=== PATIENT | female | born 1995 | race Two or more races ===

== ENCOUNTER 2025-06-05 12:05 | Inpatient (IN) | payer MEDICAID, OTHER ==
[~2025-06-05] VITALS: Ht 175.3 cm; Wt 57.2 kg
[2025-06-05] VITALS (7 sets, daily range): BP systolic 93–104; BP diastolic 46–67; PULSE 62–74; RESP 12–18; TEMP 97.3–98.6; O2SAT 98–100
--- NOTE | 2025-06-05 12:31 | ED.PDOC ---
History of Present Illness HPI Comments A 29 year-old female, with a PMHX of Anemia and Colitis, presents to the ED with a chief complaint of low blood levels with associated fatigue as of X1 week ago. Patient had blood drawn X1 week ago and was told today by PCP that blood levels are low at 6.2. Patient reports additional lower abdominal pain with associated blood in stools for about X1 year due to Colitis. Patient states abdominal pain is a 3/10, constant, with no associated alleviating factors. Patient has no further complaints at this time and otherwise denies further associated symptoms of N/V, migraine, dizziness, dysuria, hematuria, or fever. Chief Complaint: Abnormal LAB's Time Seen by MD: 12:21 Reviewed Notes: Nurses Notes, Medications, Allergies Allergies: Coded Allergies: NO KNOWN ALLERGIES (Unverified , 06/05/25) Information Source: Patient Mode of Arrival: Ambulatory Severity: Moderate Duration: Since onset Associated signs and symptoms Blood in stool, lower abdominal pain, fatigue Past Medical History Past Medical History (Other): Anemia and Colitis Surgical History: Denies all surgeries HEALTH SAFETY SPECIALIST History: No Pertinent HEALTH SAFETY SPECIALIST History Family History Family History: Reviewed,noncontributory to illness, No family hx of Cancer, No family hx of DM, No family hx of Heart azul, No family hx of HTN, No family hx ofKidney azul, No family hx of Liver azul, No family hx of Lung azul, No family hx of Stroke Social History Smoker: Non-Smoker Alcohol: Denies ETOH Use Drugs: Marijuana Lives In: Home Constitutional: reports: fatigue; denies: chills, diaphoresis, fever, malaise, sweats, weakness, others EENTM: denies: blurred vision, double vision, ear bleeding, ear discharge, ear drainage, ear pain, ear ringing, eye pain, eye redness, hearing loss, mouth pain, mouth swelling, nasal discharge, nose bleeding, nose congestion, nose pain, photophobia, tearing, throat pain, throat swelling, voice changes, others Respiratory: denies: cough, hemoptysis, orthopnea, SOB at rest, shortness of breath, SOB with excertion, stridor, wheezing, others Cardiovascular: denies: chest pain, dizzy spells, diaphoresis, Dyspnea on exertion, edema, irregular heart beat, left arm pain, lightheadedness, palpitations, PND, syncope, others Gastrointestinal: reports: abdominal pain, others (blood in stool ); denies: ab domen distended, blood streaked bowels, constipated, diarrhea, dysphagia, difficulty swallowing, hematemesis, melena, nausea, poor appetite, poor fluid intake, rectal bleeding, rectal pain, vomiting Genitourinary: denies: abnormal vagina bleeding, burning, dyspareunia, dysuria, flank pain, frequency, hematuria, incontinence, pain, , vagina discharge, urgency, others Neurological: denies: dizziness, fainting, headache, left sided numbness, left sided weakness, numbness, paresthesia, pre-existing deficit, right sided numbness, right sided weakness, seizure, speech problems, tingling, tremors, weakness, others Musculoskeletal: denies: back pain, gout, joint pain, joint swelling, muscle pa in, muscle stiffness, neck pain, others Integumetry: denies: bruises, change in color, change in hair/nails, dryness, laceration, lesions, lumps, rash, wounds, others Allergic/Immunocompromised: denies: Difficulty Healing, Frequent Infections, Hives, Itching, others Hematologic/Lymphatic: denies: anemia, blood clots, easy bleeding, easy bruising, swollen glands, others Endocrine: denies: excessive hunger, excessive sweating, excessive thirst, excessive urination, flushing, intolerance to cold, intolerance to heat, unexplained weight gain, unexplained weight loss, others Psychiatric: denies: anxiety, bipolar disorder, depression, hopeless, panic disorder, schizophrenia, sleepless, suicidal, others All Other Systems: Reviewed and Negative Physical Exam General Appearance: Moderate Distress, Thin HEENT: Pale Conjuntivae (L), Pale Conjuntivae (R), Pharynx Normal, TMs Normal Neck: Full Range of Motion, Non-Tender, Normal, Normal Inspection Respiratory: Chest Non-Tender, Lungs Clear, No Accessory Muscle Use, No Respiratory Distress, Normal Breath Sounds Cardiovascular: No Edema, No JVD, No Murmur, No Gallop, Normal Peripheral Pulses, Regular Rate/Rhythm Breast Exam: Deferred Gastrointestinal: LLQ, No Organomegaly, No Pulsatile Mass, Normal Bowel Sounds, RLQ, Soft, Tenderness Genitalia: Deferred Pelvic: Deferred Rectal: Deferred Extremities: No calf tenderness, Normal capillary refill, No pedal edema Musculoskeletal : Apperance: Normal Neurologic: Alert, crew manager II-XII nml as Tested, Motor Weakness, Normal Affect, Normal Mood, No Sensory Deficits Cerebellar Function: Normal Reflexes: Normal Skin: Dry, Pallor, Warm Lymphatic: No Adenopathy Was a procedure done? Was a procedure done?: No Differential Dx Considerations may include: Anemia, intractable abdominal pain, generalized weakness, GI bleed X-Ray, Labs, Meds, VS Vital Signs Date Time Temp Pulse Resp B/P (MAP) Pulse Ox O2 Delivery O2 Flow Rate FiO2 06/05/25 13:32 66 18 98 Room Air 06/05/25 13:32 16 91/51 (64) 98 06/05/25 12:05 99.0 66 16 100/64 99 99.0 Lab Test 06/05/25 12:31 06/05/25 12:23 Range/Units White Blood Count 5.8 4.4-10.8 10^3/uL Red Blood Count 3.31 L 4.0-5.20 10^6/uL Hemoglobin 7.0 *L 12.2-16.2 g/dL Hematocrit 22.9 L 36.0-46.0 % Mean Corpuscular Volume 69.3 L 80.0-100.0 fL Mean Corpuscular Hemoglobin 21.1 L 28.0-32.0 pg Mean Corpuscular Hemoglobin Concent 30.5 L 32.0-36.0 g/dL Red Cell Distribution Width 16.6 H 11.8-14.3 % Platelet Count 536 H 140-450 10^3/uL Mean Platelet Volume 7.5 6.9-10.8 fL Neutrophils (%) (Auto) 42.7 37.0-80.0 % Lymphocytes (%) (Auto) 41.6 10.0-50.0 % Monocytes (%) (Auto) 6.4 0.0-12.0 % Eosinophils (%) (Auto) 7.7 H 0.0-7.0 % Basophils (%) (Auto) 1.6 0.0-2.0 % Neutrophils # (Auto) 2.5 1.6-8.6 10 ^3/uL Lymphocytes # (Auto) 2.4 0.4-5.4 10 ^3/uL Monocytes # (Auto) 0.4 0-1.3 10 ^3/uL Eosinophils # (Auto) 0.4 0-0.8 10 ^3/uL Basophils # (Auto) 0.1 0-0.2 10 ^3/uL Nucleated Red Blood Cells 0.0 % Prothrombin Time 10.7 9.3-11.8 sec Prothrombin Time INR 1.01 0.9-1.15 Activated Partial Thromboplast Time 25.9 24.5-34.5 SEC Sodium Level 138 136-145 mmol/L Potassium Level 3.6 3.5-5.1 mmol/L Chloride Level 105 98-107 mmol/L Carbon Dioxide Level 28 20-31 mmol/L Anion Gap 5 5-15 Blood Urea Nitrogen 9 9-23 mg/dL Creatinine 0.62 0.550-1.02 mg/dL Glomerular Filtration Rate Calc 124 >90 mL/min BUN/Creatinine Ratio 14.5 10.0-20.0 Serum Glucose 84 74-106 mg/dL Calcium Level 9.2 8.7-10.4 mg/dL Urine Color Light-yellow Yellow Urine Clarity Turbid H Clear Urine pH 6.0 5.0-9.0 Urine Specific [place] 1.021 1.001-1.035 Urine Protein Negative Negative Urine Ketones Negative Negative Urine Blood Negative Negative /uL Urine Nitrite Negative Negative Urine Bilirubin Negative Negative Urine Urobilinogen Normal Negative mg/dL Urine Leukocyte Esterase 3+ Negative /uL Urine RBC 4 0 - 4 /hpf Urine Microscopic WBC 14 H 0-5 /HPF Urine Squamous Epithelial Cells Mod <5 /hpf Urine Bacteria None seen None Seen /hpf Urine Mucus Few None Seen Urine Glucose Normal Normal mg/dL Current Medications Medications (Trade) Dose Ordered Sig/Cam Route Start Time Stop Time Status Last Admin Pantoprazole Sodium (Protonix) 40 mg ONCE ONCE IV 06/05/25 12:30 06/05/25 12:31 DC 06/05/25 13:32 IV Hep-Lock was established The patient was given Protonix 40 mg IV push The patient's CBC shows anemia with a hemoglobin of 7.0 and hematocrit 22.9 The patient was given Rocephin 1 g IV piggyback for urine that shows a UTI The CAT scan of the abdomen and pelvis shows: IMPRESSION: 1. Multiple soft tissue nodules in the mesenteric fat are suspicious for metastatic disease. Alternatively, this appearance could arise from prior splenic trauma, although the spleen appears normal morphologically on the current study. Recommend surgical consultation for appropriate management, biopsy, or follow-up imaging. 2. Trace free fluid in the pelvis, likely physiologic. 3. No evidence of bowel obstruction, acute appendicitis, or other acute process in the abdomen or pelvis. The patient is being admitted at this time The patient is being typed and screened and transfused with 1 unit of packed red blood cells. The patient is being admitted Images Reviewed?: Images reviewed and evaluated by me Time of 1ST Reevaluation: 12:54 Reevaluation 1ST: Unchanged Patient Education/Counseling: Diagnosis, Treatment, Prognosis Family Education/Counseling: No Family Present SEPSIS Sepsis Screen Physician Orders Heplock Iv (06/05/25 12:23) Electrocardigram (06/05/25 12:23) Type And Screen (06/05/25 12:23) Obtain Consent For: (06/05/25 13:25) Administer Blood Products UD (06/05/25 13:25) Ct Ab Pel Wo Con-No Oral Or Iv (06/05/25 13:25) Ceftriaxone 1gm/50ml D5w (Rocephin) (06/05/25 14:30) Vital Signs Date Time Temp Pulse Resp B/P (MAP) Pulse Ox O2 Delivery O2 Flow Rate FiO2 06/05/25 13:32 66 18 98 Room Air 06/05/25 13:32 16 91/51 (64) 98 06/05/25 12:05 99.0 66 16 100/64 99 99.0 Laboratory Tests Test 06/05/25 12:31 White Blood Count 5.8 10^3/uL (4.4-10.8) Medications Medications Dose Ordered Sig/Cam Route Start Time Stop Time Status Last Admin Dose Admin Pantoprazole Sodium 40 mg ONCE ONCE IV 06/05/25 12:30 06/05/25 12:31 DC 06/05/25 13:32 Departure 1 Departure Time of Disposition: 14:27 Impression: Primary Impression: Lower GI bleed Additional Impression: Severe anemia Disposition: 09 ADMITTED INPATIENT Admit to: Med Surg Condition: Fair Critical Care Note Critical Care Time?: No Stability Stability form required: Yes Unstable for transfer: ED Physician Assesment (Clinical assesment) Heart Score Heart Score: Heart Score Response (Comments) Value History N/A 0 EKG N/A 0 Age N/A 0 Risk Factors N/A 0 Troponin N/A 0 Total 0 I personally scribed for JESSIKA GARCIA MD ([email or web address]) on 06/05/25 at 12:31. Electronically submitted by Ivory Lanier ([email or web address]). I personally scribed for JESSIKA GARCIA MD ([email or web address]) on 06/05/25 at 12:32. Electronically submitted by Ivory Lanier ([email or web address]). I personally scribed for JESSIKA GARCIA MD ([email or web address]) on 06/05/25 at 14:35. Electronically submitted by Ivory Lanier ([email or web address]). JESSIKA GARCIA MD Jun 05, 2025 12:31
[2025-06-05 12:59] LABS: Urine Protein, UAD Negative (Negative)
[2025-06-05 13:03] LABS: Hematocrit 22.9 % (36.0-46.0); Mean Corpuscular Hemoglobin 21.1 pg (28.0-32.0); Mean Corpuscular Volume 69.3 fL (80.0-100.0); Nucleated Red Blood Cells % 0.0 %
[2025-06-05 13:05] LABS: Chloride 105 mmol/L (98-107); Potassium 3.6 mmol/L (3.5-5.1); Sodium 138 mmol/L (136-145)
[2025-06-05 13:06] LABS: Anion Gap 5 (5-15); Calcium 9.2 mg/dL (8.7-10.4); Carbon Dioxide 28 mmol/L (20-31)
[2025-06-05 13:11] LABS: BUN/Creatinine Ratio 14.5 (10.0-20.0); Blood Urea Nitrogen 9 mg/dL (9-23); Glucose 84 mg/dL (74-106); Hemoglobin 7.0 g/dL (12.2-16.2)
[2025-06-05 13:21] LABS: INR 1.01 (0.9-1.15); Partial Thromboplastin Time 25.9 SEC (24.5-34.5); Prothrombin Time 10.7 sec (9.3-11.8)
[2025-06-05] MEDS: PANTOPRAZOLE 40 MG/10 ML VIAL INJ IV ONE (13:32)
--- NOTE | 2025-06-05 14:19 | DVH ---
EXAM: CT CT AB PEL WO CON-NO ORAL OR IV HISTORY: pain COMPARISON: None TECHNIQUE: Helical CT images of the abdomen and pelvis were performed without IV contrast. Sagittal a nd coronal reformatted images were obtained. This CT exam was performed using one or more of the foll owing dose reduction techniques: Automated exposure control, adjustment of the mA and/or kv according to patient size, or the use of iterative reconstruction techniques. Radiation Dose: Abdomen/Pelvis: CTDIvol 5.07 mGy, DLP 244.27 mGy*cm. FINDINGS: CT abdomen: The lung bases are clear. The heart is not enlarged. The left lobe of the liver is elonga angela and extends to the left abdominal wall draping over the spleen. The noncontrast spleen, gallbladd er, pancreas, kidneys, and adrenal glands are unremarkable. No abdominal aortic aneurysm. There is a small fatty umbilical hernia. CT pelvis: No abnormal bowel dilatation or free air. There is trace free fluid in the pelvis. There a re multiple soft tissue nodules in the mesenteric fat, greater on the left. The appendix is not dilat ed. The urinary bladder is not distended. IMPRESSION: 1. Multiple soft tissue nodules in the mesenteric fat are suspicious for metastatic disease. Alternat ively, this appearance could arise from prior splenic trauma, although the spleen appears normal morp hologically on the current study. Recommend surgical consultation for appropriate management, biopsy, or follow-up imaging. 2. Trace free fluid in the pelvis, likely physiologic. 3. No evidence of bowel obstruction, acute appendicitis, or other acute process in the abdomen or pel vis.
[2025-06-05] MEDS: cefTRIAXone 1GM/50ML D5W 50 ML IV ONE (14:46)
[2025-06-05] MEDS: SODIUM CHLORIDE 0.9% 1,000 ML IV ONE (15:04)
--- NOTE | 2025-06-05 16:22 | DVHINCON2 ---
GI Consult Consult Note Date of Consultation: 06/05/2025 Chief Complaint: anemia and blood in stool Referring Physician:Dr Hernandez H&P: 29 y.o. woman with h/o UC who was found to have anemia on outpatient lab and was send to the ED for blood transfusion. She still has active UC despite being on Tremfoya. Past Medical History: hypothyroidism, UC Past Surgical History: none Social History: NO smoking, drinking ETOH and use of illegal drugs. Family History: no family h/o GI illness Review of Systems: Constitutional: no fever, chill, weight loss HEENT: no eye pain, no hearing loss, no oral lesion, no scleral icterus Heart: no chest pain, no chest pressure Lung: no cough, no dyspnea with exertion Abdomen: see HPI : no pain with urination, normal appearing urine Musculoskeletal: no joint pain, no muscle pain Neurological: no seizure, no loss of sensation, no weakness in extremities Pysch: no depression, no anxiety Derm: no rash, no jaundice Physical exam: General: NAD, AAOX3 HEENT: PERRL, no scleral icterus, normal hearing, gums without lesions or bleeding, oropharynx clear without erythema or exudate. Neck: Supple without enlargement of the thyroid, or lymphadenopathy. Chest: Normal size and shape, no tenderness, lung perales clear to auscultation and percussion, nonlabored breathing. Heart: RRR, no murmur Abdomen: non-distended, no tenderness to palpation, +BS, no hepatosplenomegaly Extremities: no edema, no cyanosis Neurological: CN II-XII intact, sensation intact in all extremities, 5+ strength in all extremities, no asterixis Skin: No rashes, No jaundice Labs: Laboratory Results Test 06/05/25 12:31 06/05/25 12:23 White Blood Count 5.8 10^3/uL (4.4-10.8) Red Blood Count 3.31 10^6/uL (4.0-5.20) Hemoglobin 7.0 g/dL (12.2-16.2) Hematocrit 22.9 % (36.0-46.0) Mean Corpuscular Volume 69.3 fL (80.0-100.0) Mean Corpuscular Hemoglobin 21.1 pg (28.0-32.0) Mean Corpuscular Hemoglobin Concent 30.5 g/dL (32.0-36.0) Red Cell Distribution Width 16.6 % (11.8-14.3) Platelet Count 536 10^3/uL (140-450) Mean Platelet Volume 7.5 fL (6.9-10.8) Neutrophils (%) (Auto) 42.7 % (37.0-80.0) Lymphocytes (%) (Auto) 41.6 % (10.0-50.0) Monocytes (%) (Auto) 6.4 % (0.0-12.0) Eosinophils (%) (Auto) 7.7 % (0.0-7.0) Basophils (%) (Auto) 1.6 % (0.0-2.0) Neutrophils # (Auto) 2.5 10 ^3/uL (1.6-8.6) Lymphocytes # (Auto) 2.4 10 ^3/uL (0.4-5.4) Monocytes # (Auto) 0.4 10 ^3/uL (0-1.3) Eosinophils # (Auto) 0.4 10 ^3/uL (0-0.8) Basophils # (Auto) 0.1 10 ^3/uL (0-0.2) Nucleated Red Blood Cells 0.0 % Prothrombin Time 10.7 sec (9.3-11.8) Prothrombin Time INR 1.01 (0.9-1.15) Activated Partial Thromboplast Time 25.9 SEC (24.5-34.5) Sodium Level 138 mmol/L (136-145) Potassium Level 3.6 mmol/L (3.5-5.1) Chloride Level 105 mmol/L (98-107) Carbon Dioxide Level 28 mmol/L (20-31) Anion Gap 5 (5-15) Blood Urea Nitrogen 9 mg/dL (9-23) Creatinine 0.62 mg/dL (0.550-1.02) Glomerular Filtration Rate Calc 124 mL/min (>90) BUN/Creatinine Ratio 14.5 (10.0-20.0) Serum Glucose 84 mg/dL (74-106) Calcium Level 9.2 mg/dL (8.7-10.4) Urine Color Light-yellow (Yellow) Urine Clarity Turbid (Clear) Urine pH 6.0 (5.0-9.0) Urine Specific [place] 1.021 (1.001-1.035) Urine Protein Negative (Negative) Urine Ketones Negative (Negative) Urine Blood Negative /uL (Negative) Urine Nitrite Negative (Negative) Urine Bilirubin Negative (Negative) Urine Urobilinogen Normal mg/dL (Negative) Urine Leukocyte Esterase 3+ /uL (Negative) Urine RBC 4 /hpf (0 - 4) Urine Microscopic WBC 14 /HPF (0-5) Urine Squamous Epithelial Cells Mod /hpf (<5) Urine Bacteria None seen /hpf (None Seen) Urine Mucus Few (None Seen) Urine Glucose Normal mg/dL (Normal) Other Laboratory Tests 06/05/25 12:31 Imaging: CT A/P: 1. Multiple soft tissue nodules in the mesenteric fat are suspicious for metastatic disease. Alternatively, this appearance could arise from prior splenic trauma, although the spleen appears normal morphologically on the current study. Recommend surgical consultation for appropriate management, biopsy, or follow-up imaging. 2. Trace free fluid in the pelvis, likely physiologic. 3. No evidence of bowel obstruction, acute appendicitis, or other acute process in the abdomen or pelvis. Assessment: 29 y.o. woman with active UC who has anemia. She was also found to have nodules in the mesenteric fat. Plan: - Pt will get blood transfusion - Recommend placing pt on hydrocortisone IV 100 mg tid. - Will check C diff since she had recent antibiotics use. Date of Service: Jun 05, 2025 Billing Provider: ARELIS LORENZ MD Common Visit Codes: [id number] INP/OBS CARE (MOD) ARELIS LORENZ MD Jun 05, 2025 16:22
--- NOTE | 2025-06-05 18:29 | DVHHP2 ---
Admitting Diagnosis: Anemia History of Present Illness A 29 year-old female, with a PMHX of Anemia and Colitis, presents to the ED with a chief complaint of low blood levels with associated fatigue as of X1 week ago. Patient had blood drawn X1 week ago and was told today by PCP that blood levels are low at 6.2. Patient reports additional lower abdominal pain with associated blood in stools for about X1 year due to Colitis. Patient states abdominal pain is a 3/10, constant, with no associated alleviating factors. Patient has no further complaints at this time and otherwise denies further associated symptoms of N/V, migraine, dizziness, dysuria, hematuria, or fever. Past Medical History (Other): Anemia and Colitis Surgical History: Denies all surgeries PIT OPERATOR History: No Pertinent PIT OPERATOR History Family History Family History: Reviewed,noncontributory to illness, No family hx of Cancer, No family hx of DM, No family hx of Heart azul, No family hx of HTN, No family hx of Kidney azul, No family hx of Liver azul, No family hx of Lung azul, No family hx of Stroke Social History Smoker: Non-Smoker Alcohol: Denies ETOH Use Drugs: Marijuana Lives In: Home Allergies: Coded Allergies: NO KNOWN ALLERGIES (Unverified , 06/05/25) Current Medications Current Medications Medications (Trade) Dose Ordered Sig/Cam Route PRN Reason Start Time Stop Time Status Last Admin Hydrocortisone Sodium Succinate (Solu-CORTEF INJECTION) 100 mg Q8HR IV 06/05/25 22:00 Vital Signs Vital Signs Date Time Temp Pulse Resp B/P (MAP) Pulse Ox O2 Delivery O2 Flow Rate FiO2 06/05/25 17:25 98.6 68 12 99/55 (70) 99 98.6 06/05/25 15:00 Room Air* 0 21 Physical Exam Generally-71 years old woman, well nourished well developed. No apparent distress HEENT-atraumatic, normocephalic Heart-regular rate and rhythm Lungs clear to auscultate Abdomen soft, nontender nondistended Musculoskeletal-no edema cyanosis Neuro-AO x3, no focal deficits SEPSIS Sepsis Screen Date sepsis recognized/suspect: Jun 05, 2025 Time Sepsis recognized/suspect: 1500 Recent Procedure: No On Antibiotic Therapy: No Respiratory Rate >20: No Heart Rate >90: No Temp<36 C (96.8 F) or >38.3 C: No SBP <90 or MAP <65 mmHG: No New Acute Mental Status Change: No Is the patient on CPAP, BIPAP,: No Physician Orders Heplock Iv (06/05/25 12:23) Electrocardigram (06/05/25 12:23) Obtain Consent For: (06/05/25 13:25) Administer Blood Products UD (06/05/25 13:25) Ct Ab Pel Wo Con-No Oral Or Iv (06/05/25 13:25) Clostridium Difficile Toxin (06/05/25 16:22) Hydrocortisone Succinate Inj (Solu-Marielena (06/05/25 22:00) Urine Creatinine (06/05/25 18:16) Complete Blood Count (06/06/25 05:00) Complete Blood Count (06/07/25 05:00) Complete Blood Count (06/08/25 05:00) Complete Blood Count (06/09/25 05:00) Complete Blood Count (06/10/25 05:00) Comprehensive Metabolic Panel (06/06/25 05:00) Comprehensive Metabolic Panel (06/07/25 05:00) Comprehensive Metabolic Panel (06/08/25 05:00) Comprehensive Metabolic Panel (06/09/25 05:00) Comprehensive Metabolic Panel (06/10/25 05:00) Hydrocortisone Succinate Inj (Solu-Marielena (06/05/25 22:00) Admit (06/05/25 18:19) Code Status (06/05/25 18:19) Vital Signs .PER UNIT PROTOCOL (06/05/25 18:19) Review Orders With Adm.Md (06/05/25 18:19) Encourage Activity As Tolerate (06/05/25 18:19) Regular Diet (06/05/25 Dinner) Sodium Chloride Lock (Saline Lock Ns) (06/05/25 22:00) Acetaminophen Tablet (Tylenol Tablet) (06/05/25 18:30) Notify Md Of Changes From Base (06/05/25 18:19) Advance Directive (06/05/25 18:19) Patient Condition (06/05/25 18:19) Allergies (06/05/25 18:19) Hydrocodone-Acet 5/325mg Tab ([place] 5/32 (06/05/25 18:30) Hydromorphone Injection (Dilaudid Inject (06/05/25 18:30) Ondansetron Hcl (Zofran) (06/05/25 18:30) Ferrous Sulfate Tablet (06/06/25 10:00) Urine Bacterial Culture (06/05/25 18:26) Ceftriaxone Ivpb Rocephin (06/06/25 09:00) Vital Signs Date Time Temp Pulse Resp B/P (MAP) Pulse Ox O2 Delivery O2 Flow Rate FiO2 06/05/25 17:25 98.6 68 12 99/55 (70) 99 98.6 06/05/25 17:23 98.6 68 12 99/55 98.6 06/05/25 16:35 98.5 72 13 93/46 98.5 06/05/25 16:20 98.6 74 12 97/54 (68) 99 98.6 06/05/25 16:12 98.6 74 12 97/54 98.6 06/05/25 16:12 98.6 74 12 97/54 98.6 06/05/25 15:00 98.0 71 16 90/57 (68) 98 98.0 06/05/25 15:00 71 16 98 Room Air* 0 21 06/05/25 13:32 66 18 98 Room Air 06/05/25 13:32 16 91/51 (64) 98 06/05/25 12:05 99.0 66 16 100/64 99 99.0 Laboratory Tests Test 06/05/25 12:31 White Blood Count 5.8 10^3/uL (4.4-10.8) Medications Medications Dose Ordered Sig/Cam Route Start Time Stop Time Status Last Admin Dose Admin Ceftriaxone Sodium 50 ml @ 100 mls/hr ONCE ONCE IV 06/05/25 14:30 06/05/25 14:59 DC 06/05/25 14:46 Pantoprazole Sodium 40 mg ONCE ONCE IV 06/05/25 12:30 06/05/25 12:31 DC 06/05/25 13:32 Sodium Chloride 1,000 ml @ 1,000 mls/hr Q1H ONCE IV 06/05/25 15:00 06/05/25 15:59 DC 06/05/25 15:04 Results Labs Test 06/05/25 12:31 06/05/25 12:23 Range/Units White Blood Count 5.8 4.4-10.8 10^3/uL Red Blood Count 3.31 L 4.0-5.20 10^6/uL Hemoglobin 7.0 *L 12.2-16.2 g/dL Hematocrit 22.9 L 36.0-46.0 % Mean Corpuscular Volume 69.3 L 80.0-100.0 fL Mean Corpuscular Hemoglobin 21.1 L 28.0-32.0 pg Mean Corpuscular Hemoglobin Concent 30.5 L 32.0-36.0 g/dL Red Cell Distribution Width 16.6 H 11.8-14.3 % Platelet Count 536 H 140-450 10^3/uL Mean Platelet Volume 7.5 6.9-10.8 fL Neutrophils (%) (Auto) 42.7 37.0-80.0 % Lymphocytes (%) (Auto) 41.6 10.0-50.0 % Monocytes (%) (Auto) 6.4 0.0-12.0 % Eosinophils (%) (Auto) 7.7 H 0.0-7.0 % Basophils (%) (Auto) 1.6 0.0-2.0 % Neutrophils # (Auto) 2.5 1.6-8.6 10 ^3/uL Lymphocytes # (Auto) 2.4 0.4-5.4 10 ^3/uL Monocytes # (Auto) 0.4 0-1.3 10 ^3/uL Eosinophils # (Auto) 0.4 0-0.8 10 ^3/uL Basophils # (Auto) 0.1 0-0.2 10 ^3/uL Nucleated Red Blood Cells 0.0 % Prothrombin Time 10.7 9.3-11.8 sec Prothrombin Time INR 1.01 0.9-1.15 Activated Partial Thromboplast Time 25.9 24.5-34.5 SEC Sodium Level 138 136-145 mmol/L Potassium Level 3.6 3.5-5.1 mmol/L Chloride Level 105 98-107 mmol/L Carbon Dioxide Level 28 20-31 mmol/L Anion Gap 5 5-15 Blood Urea Nitrogen 9 9-23 mg/dL Creatinine 0.62 0.550-1.02 mg/dL Glomerular Filtration Rate Calc 124 >90 mL/min BUN/Creatinine Ratio 14.5 10.0-20.0 Serum Glucose 84 74-106 mg/dL Calcium Level 9.2 8.7-10.4 mg/dL Urine Color Light-yellow Yellow Urine Clarity Turbid H Clear Urine pH 6.0 5.0-9.0 Urine Specific [place] 1.021 1.001-1.035 Urine Protein Negative Negative Urine Ketones Negative Negative Urine Blood Negative Negative /uL Urine Nitrite Negative Negative Urine Bilirubin Negative Negative Urine Urobilinogen Normal Negative mg/dL Urine Leukocyte Esterase 3+ Negative /uL Urine RBC 4 0 - 4 /hpf Urine Microscopic WBC 14 H 0-5 /HPF Urine Squamous Epithelial Cells Mod <5 /hpf Urine Bacteria None seen None Seen /hpf Urine Mucus Few None Seen Urine Glucose Normal Normal mg/dL Primary Diagnosis Severe microcytic anemia Acute auscultate colitis flare Plan Status post transplant in ED. Start iron supplement Check CBC 4 hours after blood transfusion GI appreciated. Start hydrocortisone 100 mg t.i.d. Monitor for lower GI bleed Full code PPI for GI prophylaxis Regular diet SCD for DVT prophylaxis Plan discussed with: Patient Problems List: (1) Severe anemia Status: Acute (2) Lower GI bleed Status: Acute Date of Service: Jun 05, 2025 Billing Provider: DAVID BUSCH MD Common Visit Codes: [id number] INP/OBS CARE (HIGH) DAVID BUSCH MD Jun 05, 2025 18:29
[2025-06-05] MEDS ORDERED: ONDANSETRON HCL 4 MG/2 ML VIAL IV PRN (18:30)
[2025-06-05] MEDS ORDERED: HYDROmorphone HCL 2 MG/ML VL/or syr IV PRN (18:30)
[2025-06-05] MEDS ORDERED: HYDROCORTISONE SOD SUCC 100 MG/2ML INJ VIAL IV SCH (22:00)
[2025-06-05] MEDS: SODIUM CHLOR 0.9% PF (SALINE LOCK) 10ML VIAL/SYR IV SCH (22:12)
[2025-06-05] MEDS: HYDROCORTISONE SOD SUCC 100 MG/2ML INJ VIAL IV SCH (22:12)
[2025-06-06 01:00] VITALS: BP 96/59; PULSE 60; RESP 17; TEMP 97.9; O2SAT 98
[2025-06-06 04:53] VITALS: BP 107/64; PULSE 61; RESP 17; TEMP 97.3; O2SAT 100
[2025-06-06 05:31] LABS: Hematocrit 23.9 % (36.0-46.0); Hemoglobin 7.5 g/dL (12.2-16.2); Mean Corpuscular Hemoglobin 22.7 pg (28.0-32.0); Mean Corpuscular Volume 72.3 fL (80.0-100.0); Nucleated Red Blood Cells % 0.0 %
[2025-06-06 05:43] LABS: Albumin 3.8 g/dL (3.2-4.8); Alkaline Phosphatase 59 U/L (46-116); Anion Gap 10 (5-15); BUN/Creatinine Ratio 10.9 (10.0-20.0); Bilirubin, Total 0.4 mg/dL (0.2-1.0); Carbon Dioxide 23 mmol/L (20-31); Chloride 105 mmol/L (98-107); Potassium 3.7 mmol/L (3.5-5.1); Sodium 138 mmol/L (136-145); Total Protein 6.9 g/dL (5.7-8.2)
[2025-06-06 06:01] LABS: Alanine Aminotransferase < 9 U/L (7-40); Blood Urea Nitrogen 6 mg/dL (9-23); Calcium 8.7 mg/dL (8.7-10.4); Glucose 115 mg/dL (74-106)
[2025-06-06] MEDS: cefTRIAXone 1GM/50ML D5W 50 ML IV SCH (08:41)
[2025-06-06 09:05] VITALS: BP 97/56; PULSE 83; RESP 16; TEMP 98.4; O2SAT 100
--- NOTE | 2025-06-06 11:00 | DVHPN2 ---
Subjective Continues with rectal bleeding Reviewed: Care Plan, H&P, Labs, Medications, Previous Orders, Radiology, Other (Consultation) Changes from previous H/P or p: No Changes Objective Vitals Vital Signs Date Time Temp Pulse Resp B/P (MAP) Pulse Ox O2 Delivery O2 Flow Rate FiO2 06/06/25 09:05 98.4 83 16 97/56 (70) 100 98.4 06/05/25 15:00 Room Air* 0 21 Intake/Output Intake and Output 06/06/25 07:00 Intake Total 2050 ml Output Total 0 ml Balance 2050 ml Intake Oral 0 ml IV Total 1050 ml Tube Feeding 0 ml Blood Product 1000 ml Output Urine Total 0 ml Stool Total 0 ml Emesis 0 ml Other 0 ml General Appearance: Alert, Oriented X3, Cooperative, No acute distress HEENT: Atraumatic, Other (Pale) Lungs: Clear to auscultation, Normal air movement Cardiovascular: Regular rate, Normal S1, Normal S2, No murmurs Abdomen: Normal bowel sounds, Soft, No tenderness Neuro: Normal speech, Cranial nerves 3-12 NL Psych/Mental Status: Mental status NL, Mood NL Medications Current Medications Medications Dose Ordered Sig/Cam Route Start Time Stop Time Status Last Admin Dose Admin Hydrocortisone Sodium Succinate 100 mg TID IV 06/05/25 22:00 06/06/25 05:45 100 MG Sodium Chloride 10 ml Q8HR IV 06/05/25 22:00 06/06/25 05:45 10 ML Acetaminophen 650 mg Q6HP PRN PO 06/05/25 18:30 Acetaminophen/ Hydrocodone Bitart 1 tab Q4HP PRN PO 06/05/25 18:30 Hydromorphone HCl 0.5 mg Q4HP PRN IV 06/05/25 18:30 Ondansetron HCl 4 mg Q4HP PRN IV 06/05/25 18:30 Ferrous Sulfate 325 mg DAILY PO 06/06/25 10:00 Ceftriaxone Sodium 50 ml @ 100 mls/hr DAILY@09 IV 06/06/25 09:00 06/06/25 08:41 100 MLS/HR Pantoprazole Sodium 40 mg DAILY IV 06/06/25 10:00 Laboratory Results Laboratory Tests 06/06/25 04:26 Chemistry Test 06/05/25 12:31 06/06/25 04:26 Calcium Level 9.2 mg/dL (8.7-10.4) 8.7 mg/dL (8.7-10.4) Albumin 3.8 g/dL (3.2-4.8) Total Protein 6.9 g/dL (5.7-8.2) Coagulation Test 06/05/25 12:31 Prothrombin Time 10.7 sec (9.3-11.8) Prothrombin Time INR 1.01 (0.9-1.15) Activated Partial Thromboplast Time 25.9 SEC (24.5-34.5) LFT Test 06/06/25 04:26 Alanine Aminotransferase (ALT) < 9 U/L (7-40) Alkaline Phosphatase 59 U/L (46-116) Aspartate Amino Transferase (AST) 12 U/L (13-40) L Total Bilirubin 0.4 mg/dL (0.2-1.0) Urinalysis Test 06/05/25 12:23 Urine Color Light-yellow (Yellow) Urine Clarity Turbid (Clear) H Urine pH 6.0 (5.0-9.0) Urine Specific [place] 1.021 (1.001-1.035) Urine Protein Negative (Negative) Urine Ketones Negative (Negative) Urine Blood Negative /uL (Negative) Urine Nitrite Negative (Negative) Urine Bilirubin Negative (Negative) Urine Urobilinogen Normal mg/dL (Negative) Urine Leukocyte Esterase 3+ /uL (Negative) Urine RBC 4 /hpf (0 - 4) Urine Microscopic WBC 14 /HPF (0-5) H Urine Squamous Epithelial Cells Mod /hpf (<5) Urine Bacteria None seen /hpf (None Seen) Urine Mucus Few (None Seen) Urine Creatinine 216.10 mg/dL (30.0-125.0) H Urine Glucose Normal mg/dL (Normal) Labs and/or images reviewed: Labs reviewed by me, Image(s) reviewed by me Assessment/Plan Assessment/Plan A 29 year-old female patient; with ulcerative colitis and marijuana use disorder; who presented with rectal bleeding # Rectal bleeding due to active ulcerative colitis with # Severe blood loss anemia due to rectal bleeding secondary to ulcerative colitis; status post 1 unit of packed RBC Thrombocytosis; most likely reactive in the setting of active bleeding # Abdominal soft tissue nodules; most likely reactive due to active ulcerative colitis as per GI # UTI # Marijuana use disorder # Malnutrition Reviewed lab work and imaging studies Continue oral steroids as per GI GI is following Continue IV ceftriaxone Urine culture pending Counseled on marijuana use cessation for 16 minutes Nutrition was consulted Continue monitoring Goals of care discussed for evaluation for 20 minutes; full code Late Entry. This medical document was created using an electronic medical record system with computerized dictation system. Although this document has been carefully reviewed, there might still be some phonetic and typographical errors. These areas are purely typographical due to imperfections of the software programs, and do not reflect any compromise in the patient's medical care. Plan discussed with: Patient, Other (Nurse) Date of Service: Jun 06, 2025 Billing Provider: MALINDA ROGERS MD Common Visit Codes: [id number] INP/OBS CARE(HIGH) Secondary Visit Codes: [id number] CHNG SMOKING >10MIN (Counseled on marijuana use cessation for 16 minutes), [id number] CARE PLAN 30 MINUTES (20 minutes) MALINDA ROGERS MD Jun 06, 2025 11:00
[2025-06-06] MEDS: FERROUS SULFATE 325mg EC TAB PO SCH (11:06)
[2025-06-06] MEDS: PANTOPRAZOLE 40 MG/10 ML VIAL INJ IV SCH (11:13)
[2025-06-06 13:00] VITALS: BP 97/52; PULSE 80; RESP 18; TEMP 98.2; O2SAT 100
--- NOTE | 2025-06-06 13:26 | DVHPN2 ---
Progress Note - Dictate Date Seen: Jun 06, 2025 Medical Necessity Reason Pt with a Central, PICC or Fol: No Subjective Pt having less blood in stool. Still has diarrhea. Tolerating regular diet. vital signs Vital Sign Date Time Temp Pulse Resp B/P (MAP) Pulse Ox O2 Delivery O2 Flow Rate FiO2 06/06/25 09:05 98.4 83 16 97/56 (70) 100 98.4 06/05/25 15:00 Room Air* 0 21 Total Intake and Output 06/05/25 06/05/25 06/06/25 15:00 23:00 07:00 Intake Total 2050 ml Output Total 0 ml Balance 2050 ml medications Current Medications Medications Dose Ordered Sig/Cam Route Start Time Stop Time Status Last Admin Dose Admin Hydrocortisone Sodium Succinate 100 mg TID IV 06/05/25 22:00 06/06/25 05:45 100 MG Sodium Chloride 10 ml Q8HR IV 06/05/25 22:00 06/06/25 05:45 10 ML Acetaminophen 650 mg Q6HP PRN PO 06/05/25 18:30 Acetaminophen/ Hydrocodone Bitart 1 tab Q4HP PRN PO 06/05/25 18:30 Hydromorphone HCl 0.5 mg Q4HP PRN IV 06/05/25 18:30 Ondansetron HCl 4 mg Q4HP PRN IV 06/05/25 18:30 Ferrous Sulfate 325 mg DAILY PO 06/06/25 10:00 06/06/25 11:06 325 MG Ceftriaxone Sodium 50 ml @ 100 mls/hr DAILY@09 IV 06/06/25 09:00 06/06/25 08:41 100 MLS/HR Pantoprazole Sodium 40 mg DAILY IV 06/06/25 10:00 06/06/25 11:13 40 MG objective General: NAD, AAOX3 HEENT: PERRL, no scleral icterus, normal hearing, gums without lesions or bleeding, oropharynx clear without erythema or exudate. Neck: Supple without enlargement of the thyroid, or lymphadenopathy. Chest: Normal size and shape, no tenderness, lung perales clear to auscultation and percussion, nonlabored breathing. Heart: RRR, no murmur Abdomen: non-distended, no tenderness to palpation, +BS, no hepatosplenomegaly Extremities: no edema Neruological: CN II-XII intact, sensation intact in all extremities, 5+ strength in all extremities, no atrixis Skin: No rashes, No jaundice laboratory and microbiology Laboratory Tests 06/06/25 04:26 Test 06/06/25 04:26 Range/Units Serum Glucose 115 H 74-106 mg/dL CT A/P: 1. Multiple soft tissue nodules in the mesenteric fat are suspicious for metastatic disease. Alternatively, this appearance could arise from prior splenic trauma, although the spleen appears normal morphologically on the current study. Recommend surgical consultation for appropriate management, biopsy, or follow-up imaging. 2. Trace free fluid in the pelvis, likely physiologic. 3. No evidence of bowel obstruction, acute appendicitis, or other acute process in the abdomen or pelvis. Problem List active UC disease- improving symptom. anemia due to GI bleeding from the UC The soft tissue nodules that were seem on CT scan are likely due to the active UC. Assessment/Plan - Continue to monitor Hgb level - Pt can be switched to PO prednisone 40 mg daily since her symptom is better - Pt will get Tremfya injection on outpatient basis - Will repeat CT scan when her UC goes into remission to reassess the soft tissue nodules. Plan discussed with: Patient CC Plasma Assessment Blood Product Administration S: [id number] ARELIS LORENZ MD Jun 06, 2025 13:26
[2025-06-06 17:37] VITALS: BP 95/58; PULSE 70; RESP 18; TEMP 97.4; O2SAT 99
[2025-06-06] MEDS: ACETAMINOPHEN 325 MG TAB PO PRN (20:15)
[2025-06-06 21:10] VITALS: BP 93/60; PULSE 68; RESP 16; TEMP 98.2; O2SAT 98
[2025-06-07] VITALS (8 sets, daily range): BP systolic 91–111; BP diastolic 59–76; PULSE 55–67; RESP 12–18; TEMP 97.1–97.9; O2SAT 98–100
[2025-06-07] MEDS: HYDROcodone-ACET 5/325MG TAB PO PRN (05:33)
[2025-06-07 05:46] LABS: Hematocrit 25.4 % (36.0-46.0); Hemoglobin 7.8 g/dL (12.2-16.2); Mean Corpuscular Hemoglobin 22.3 pg (28.0-32.0); Mean Corpuscular Volume 72.4 fL (80.0-100.0); Nucleated Red Blood Cells % 0.2 %
[2025-06-07 06:00] LABS: Albumin 4.2 g/dL (3.2-4.8); Alkaline Phosphatase 61 U/L (46-116); Anion Gap 9 (5-15); BUN/Creatinine Ratio 16.1 (10.0-20.0); Blood Urea Nitrogen 10 mg/dL (9-23); Calcium 9.9 mg/dL (8.7-10.4); Carbon Dioxide 26 mmol/L (20-31); Chloride 104 mmol/L (98-107); Potassium 3.5 mmol/L (3.5-5.1); Sodium 139 mmol/L (136-145); Total Protein 7.6 g/dL (5.7-8.2)
[2025-06-07 06:01] LABS: Bilirubin, Total 0.4 mg/dL (0.2-1.0)
[2025-06-07 06:15] LABS: Alanine Aminotransferase < 9 U/L (7-40); Glucose 126 mg/dL (74-106)
[2025-06-07 10:56] LABS: Hepatitis B Surface Antigen Negative (Negative); Hepatitis C Antibody Negative (Negative)
--- NOTE | 2025-06-07 11:13 | DVHPN2 ---
Progress Note - Dictate Date Seen: Jun 07, 2025 Medical Necessity Reason Pt with a Central, PICC or Fol: No Subjective No blood in stool but still having diarrhea. Pt says tht the entocort did not help her much previously. vital signs Vital Sign Date Time Temp Pulse Resp B/P (MAP) Pulse Ox O2 Delivery O2 Flow Rate FiO2 06/07/25 09:00 97.1 58 17 95/60 (72) 98 97.1 06/07/25 00:15 Room Air* 0 21 Total Intake and Output 06/06/25 06/06/25 06/07/25 15:00 23:00 07:00 Intake Total 50 ml 100 ml Balance 50 ml 100 ml medications Current Medications Medications Dose Ordered Sig/Cam Route Start Time Stop Time Status Last Admin Dose Admin Hydrocortisone Sodium Succinate 100 mg TID IV 06/05/25 22:00 06/07/25 05:26 100 MG Sodium Chloride 10 ml Q8HR IV 06/05/25 22:00 06/07/25 05:26 10 ML Acetaminophen 650 mg Q6HP PRN PO 06/05/25 18:30 06/06/25 20:15 650 MG Acetaminophen/ Hydrocodone Bitart 1 tab Q4HP PRN PO 06/05/25 18:30 06/07/25 05:33 1 TAB Hydromorphone HCl 0.5 mg Q4HP PRN IV 06/05/25 18:30 Ondansetron HCl 4 mg Q4HP PRN IV 06/05/25 18:30 Ferrous Sulfate 325 mg DAILY PO 06/06/25 10:00 06/07/25 09:44 325 MG Ceftriaxone Sodium 50 ml @ 100 mls/hr DAILY@09 IV 06/06/25 09:00 06/07/25 09:44 100 MLS/HR Pantoprazole Sodium 40 mg DAILY IV 06/06/25 10:00 06/07/25 09:44 40 MG objective General: NAD, AAOX3 HEENT: PERRL, no scleral icterus, normal hearing, gums without lesions or bleeding, oropharynx clear without erythema or exudate. Neck: Supple without enlargement of the thyroid, or lymphadenopathy. Chest: Normal size and shape, no tenderness, lung perales clear to auscultation and percussion, nonlabored breathing. Heart: RRR, no murmur Abdomen: non-distended, no tenderness to palpation, +BS, no hepatosplenomegaly Extremities: no edema Neruological: CN II-XII intact, sensation intact in all extremities, 5+ strength in all extremities, no atrixis Skin: No rashes, No jaundice laboratory and microbiology Laboratory Tests 06/07/25 04:59 Test 06/07/25 04:59 Range/Units Serum Glucose 126 H 74-106 mg/dL Problem List active UC disease- improving while on steroid. anemia due to GI bleeding from the UC The soft tissue nodules that were seem on CT scan are likely due to the active UC. Assessment/Plan - Continue to monitor Hgb level - Will seitch her to prednisone 40 mg daily. - She can stop the Tremfya injection on outpatient basis because it is not helping her. - Will repeat CT scan when her UC goes into remission to reassess the soft tissue nodules. - I offered her placing her on Remicade and Imuran for her UC or referral to higher level of care to see what other treatment can be offered and she would like to be referred to higher level of care. I will ask her PCP to refer her to higher level of care. - Pt can be d/c from GI prospective. - She will f/u with me next week in clinic if she get d/c. Dietary Evaluation Review Comments: check A1C and iron profile Regular Diet with Glucerna BID PO 240ml daily Expected Outcomes/Goals: Improved nutrition related lab values. Gradual wt gain. Plan discussed with: Patient CC Plasma Assessment Blood Product Administration S: [id number] ARELIS LORENZ MD Jun 07, 2025 11:13
--- NOTE | 2025-06-07 11:29 | DVHPN2 ---
Subjective Decreasing rectal bleeding Reviewed: Care Plan, H&P, Labs, Medications, Previous Orders, Radiology, Other (Consultation) Changes from previous H/P or p: Changes Objective Vitals Vital Signs Date Time Temp Pulse Resp B/P (MAP) Pulse Ox O2 Delivery O2 Flow Rate FiO2 06/07/25 09:00 97.1 58 17 95/60 (72) 98 97.1 06/07/25 08:00 Room Air* 0 21 Intake/Output Intake and Output 06/07/25 07:00 Intake Total 150 ml Balance 150 ml Intake Oral 100 ml IV Total 50 ml General Appearance: Alert, Oriented X3, Cooperative, No acute distress HEENT: Atraumatic, Other (Pale) Lungs: Clear to auscultation, Normal air movement Cardiovascular: Regular rate, Normal S1, Normal S2, No murmurs Abdomen: Normal bowel sounds, Soft, No tenderness Neuro: Normal speech, Cranial nerves 3-12 NL Psych/Mental Status: Mental status NL, Mood NL Medications Current Medications Medications Dose Ordered Sig/Cam Route Start Time Stop Time Status Last Admin Dose Admin Sodium Chloride 10 ml Q8HR IV 06/05/25 22:00 06/07/25 05:26 10 ML Acetaminophen 650 mg Q6HP PRN PO 06/05/25 18:30 06/06/25 20:15 650 MG Acetaminophen/ Hydrocodone Bitart 1 tab Q4HP PRN PO 06/05/25 18:30 06/07/25 05:33 1 TAB Hydromorphone HCl 0.5 mg Q4HP PRN IV 06/05/25 18:30 Ondansetron HCl 4 mg Q4HP PRN IV 06/05/25 18:30 Ferrous Sulfate 325 mg DAILY PO 06/06/25 10:00 06/07/25 09:44 325 MG Ceftriaxone Sodium 50 ml @ 100 mls/hr DAILY@09 IV 06/06/25 09:00 06/07/25 09:44 100 MLS/HR Pantoprazole Sodium 40 mg DAILY IV 06/06/25 10:00 06/07/25 09:44 40 MG Prednisone 40 mg DAILY PO 06/07/25 11:15 Laboratory Results Laboratory Tests 06/07/25 04:59 Chemistry Test 06/07/25 04:59 Albumin 4.2 g/dL (3.2-4.8) Calcium Level 9.9 mg/dL (8.7-10.4) Total Protein 7.6 g/dL (5.7-8.2) LFT Test 06/07/25 04:59 Alanine Aminotransferase (ALT) < 9 U/L (7-40) Alkaline Phosphatase 61 U/L (46-116) Aspartate Amino Transferase (AST) 13 U/L (13-40) Total Bilirubin 0.4 mg/dL (0.2-1.0) Urinalysis Test 06/05/25 12:23 Urine Color Light-yellow (Yellow) Urine Clarity Turbid (Clear) H Urine pH 6.0 (5.0-9.0) Urine Specific [place] 1.021 (1.001-1.035) Urine Protein Negative (Negative) Urine Ketones Negative (Negative) Urine Blood Negative /uL (Negative) Urine Nitrite Negative (Negative) Urine Bilirubin Negative (Negative) Urine Urobilinogen Normal mg/dL (Negative) Urine Leukocyte Esterase 3+ /uL (Negative) Urine RBC 4 /hpf (0 - 4) Urine Microscopic WBC 14 /HPF (0-5) H Urine Squamous Epithelial Cells Mod /hpf (<5) Urine Bacteria None seen /hpf (None Seen) Urine Mucus Few (None Seen) Urine Creatinine 216.10 mg/dL (30.0-125.0) H Urine Glucose Normal mg/dL (Normal) Microbiology Microbiology Date/Time Source Procedure Growth Status 06/05/25 12:23 Voided Urine Urine Culture - Preliminary Resulted Labs and/or images reviewed: Labs reviewed by me, Image(s) reviewed by me Assessment/Plan Assessment/Plan A 29 year-old female patient; with ulcerative colitis and marijuana use disorder; who presented with rectal bleeding # Rectal bleeding due to active ulcerative colitis with # Severe blood loss anemia due to rectal bleeding secondary to ulcerative colitis; status post 1 unit of packed RBC # Thrombocytosis; most likely reactive in the setting of active bleeding # Abdominal soft tissue nodules; most likely reactive due to active ulcerative colitis as per GI # UTI # Marijuana use disorder # Malnutrition Reviewed lab work and imaging studies Continue oral steroids as per GI GI is following Continue IV ceftriaxone Urine culture pending Counseled on marijuana use cessation Nutrition is following Continue monitoring Possible discharge tomorrow if hemoglobin level is stable Late Entry. This medical document was created using an electronic medical record system with computerized dictation system. Although this document has been carefully reviewed, there might still be some phonetic and typographical errors. These areas are purely typographical due to imperfections of the software programs, and do not reflect any compromise in the patient's medical care. Plan discussed with: Patient, Other (Nurse) My Orders Orders - MALINDA ROGERS MD Procedure Category Date Status Time * Dietary Consult CONS 06/07/25 Transmitted 00:40 Basic Metabolic Panel LAB 06/08/25 Verified 04:00 Complete Blood Count LAB 06/08/25 Verified 04:00 Date of Service: Jun 07, 2025 Billing Provider: MALINDA ROGERS MD Common Visit Codes: [id number] INP/OBS CARE(HIGH) MALINDA ROGERS MD Jun 07, 2025 11:29
[2025-06-07] MEDS: predniSONE 20 MG TAB PO SCH (11:47)
[2025-06-08] VITALS (11 sets, daily range): BP systolic 91–97; BP diastolic 54–64; PULSE 51–63; RESP 16–18; TEMP 97.4–98.2; O2SAT 98–100
[2025-06-08 07:05] LABS: Mean Corpuscular Volume 72.5 fL (80.0-100.0); Nucleated Red Blood Cells % 0.1 %
[2025-06-08 07:09] LABS: Hematocrit 22.4 % (36.0-46.0); Mean Corpuscular Hemoglobin 22.6 pg (28.0-32.0)
[2025-06-08 07:23] LABS: Albumin 3.5 g/dL (3.2-4.8); Alkaline Phosphatase 47 U/L (46-116); Anion Gap 8 (5-15); BUN/Creatinine Ratio 18.3 (10.0-20.0); Blood Urea Nitrogen 11 mg/dL (9-23); Carbon Dioxide 26 mmol/L (20-31); Chloride 106 mmol/L (98-107); Glucose 94 mg/dL (74-106); Potassium 3.5 mmol/L (3.5-5.1); Sodium 140 mmol/L (136-145); Total Protein 6.2 g/dL (5.7-8.2)
[2025-06-08 07:28] LABS: Alanine Aminotransferase < 9 U/L (7-40); Bilirubin, Total 0.2 mg/dL (0.2-1.0); Calcium 8.6 mg/dL (8.7-10.4)
[2025-06-08 07:36] LABS: Hemoglobin 7.0 g/dL (12.2-16.2)
--- NOTE | 2025-06-08 16:20 | DVHPN2 ---
Subjective Decreasing rectal bleeding Reviewed: Care Plan, H&P, Labs, Medications, Previous Orders, Radiology, Other (Consultation) Changes from previous H/P or p: Changes Objective Vitals Vital Signs Date Time Temp Pulse Resp B/P (MAP) Pulse Ox O2 Delivery O2 Flow Rate FiO2 06/08/25 14:48 98.2 63 18 97/59 98.2 06/08/25 13:00 100 06/08/25 08:00 Room Air* 0 21 Intake/Output Intake and Output 06/08/25 07:00 Intake Total 1430 ml Balance 1430 ml Intake Oral 1380 ml IV Total 50 ml # Voids 5 # Bowel Movements 7 General Appearance: Alert, Oriented X3, Cooperative, No acute distress HEENT: Atraumatic, Other (Pale) Lungs: Clear to auscultation, Normal air movement Cardiovascular: Regular rate, Normal S1, Normal S2, No murmurs Abdomen: Normal bowel sounds, Soft, No tenderness Neuro: Normal speech, Cranial nerves 3-12 NL Psych/Mental Status: Mental status NL, Mood NL Medications Current Medications Medications Dose Ordered Sig/Cma Route Start Time Stop Time Status Last Admin Dose Admin Sodium Chloride 10 ml Q8HR IV 06/05/25 22:00 06/08/25 08:44 10 ML Acetaminophen 650 mg Q6HP PRN PO 06/05/25 18:30 06/06/25 20:15 650 MG Ondansetron HCl 4 mg Q4HP PRN IV 06/05/25 18:30 Ferrous Sulfate 325 mg DAILY PO 06/06/25 10:00 06/08/25 08:44 325 MG Ceftriaxone Sodium 50 ml @ 100 mls/hr DAILY@09 IV 06/06/25 09:00 06/08/25 08:44 100 MLS/HR Pantoprazole Sodium 40 mg DAILY IV 06/06/25 10:00 06/08/25 08:44 40 MG Prednisone 40 mg DAILY PO 06/07/25 11:15 06/08/25 08:44 40 MG Laboratory Results Laboratory Tests 06/08/25 05:50 Chemistry Test 06/08/25 05:50 Albumin 3.5 g/dL (3.2-4.8) Calcium Level 8.6 mg/dL (8.7-10.4) L Total Protein 6.2 g/dL (5.7-8.2) LFT Test 06/08/25 05:50 Alanine Aminotransferase (ALT) < 9 U/L (7-40) Alkaline Phosphatase 47 U/L (46-116) Aspartate Amino Transferase (AST) 11 U/L (13-40) L Total Bilirubin 0.2 mg/dL (0.2-1.0) Urinalysis Test 06/05/25 12:23 Urine Color Light-yellow (Yellow) Urine Clarity Turbid (Clear) H Urine pH 6.0 (5.0-9.0) Urine Specific [place] 1.021 (1.001-1.035) Urine Protein Negative (Negative) Urine Ketones Negative (Negative) Urine Blood Negative /uL (Negative) Urine Nitrite Negative (Negative) Urine Bilirubin Negative (Negative) Urine Urobilinogen Normal mg/dL (Negative) Urine Leukocyte Esterase 3+ /uL (Negative) Urine RBC 4 /hpf (0 - 4) Urine Microscopic WBC 14 /HPF (0-5) H Urine Squamous Epithelial Cells Mod /hpf (<5) Urine Bacteria None seen /hpf (None Seen) Urine Mucus Few (None Seen) Urine Creatinine 216.10 mg/dL (30.0-125.0) H Urine Glucose Normal mg/dL (Normal) Microbiology Microbiology Date/Time Source Procedure Growth Status 06/06/25 11:20 Stool Clostridium difficile Toxin Assay - Final Complete 06/05/25 12:23 Voided Urine Urine Culture - Final Complete Labs and/or images reviewed: Labs reviewed by me, Image(s) reviewed by me Assessment/Plan Assessment/Plan A 29 year-old female patient; with ulcerative colitis and marijuana use disorder; who presented with rectal bleeding # Rectal bleeding due to active ulcerative colitis with # Severe blood loss anemia due to rectal bleeding secondary to ulcerative colitis; status post 1 unit of packed RBCs; hemoglobin dropped to seven; ordered 1 unit of packed RBCs # Thrombocytosis; most likely reactive in the setting of active bleeding # Abdominal soft tissue nodules; most likely reactive due to active ulcerative colitis as per GI # UTI # Marijuana use disorder # Malnutrition Reviewed lab work and imaging studies; ordered 1 unit of packed RBCs Continue oral steroids as per GI GI is following Continue IV ceftriaxone Urine culture pending Counseled on marijuana use cessation Nutrition is following Continue monitoring Late Entry. This medical document was created using an electronic medical record system with computerized dictation system. Although this document has been carefully reviewed, there might still be some phonetic and typographical errors. These areas are purely typographical due to imperfections of the software programs, and do not reflect any compromise in the patient's medical care. Plan discussed with: Patient, Other (Nurse) Date of Service: Jun 08, 2025 Billing Provider: MALINDA ROGERS MD Common Visit Codes: [id number] INP/OBS CARE(HIGH) MALINDA ROGERS MD Jun 08, 2025 16:20
[2025-06-08 20:51] LABS: Hematocrit 27.7 % (36.0-46.0); Hemoglobin 8.9 g/dL (12.2-16.2)
[2025-06-09 01:00] VITALS: BP 94/62; PULSE 50; RESP 16; TEMP 97.5; O2SAT 99
[2025-06-09 05:00] VITALS: BP 94/67; PULSE 50; RESP 16; TEMP 97.6; O2SAT 99
[2025-06-09 06:40] LABS: Hemoglobin 9.6 g/dL (12.2-16.2)
[2025-06-09 06:42] LABS: Hematocrit 30.1 % (36.0-46.0); Mean Corpuscular Hemoglobin 23.7 pg (28.0-32.0); Mean Corpuscular Volume 74.2 fL (80.0-100.0); Nucleated Red Blood Cells % 0.1 %
[2025-06-09 07:00] LABS: Alanine Aminotransferase 10 U/L (7-40); Albumin 4.4 g/dL (3.2-4.8); Alkaline Phosphatase 57 U/L (46-116); Anion Gap 9 (5-15); BUN/Creatinine Ratio 17.6 (10.0-20.0); Bilirubin, Total 0.5 mg/dL (0.2-1.0); Blood Urea Nitrogen 12 mg/dL (9-23); Calcium 9.1 mg/dL (8.7-10.4); Carbon Dioxide 28 mmol/L (20-31); Chloride 101 mmol/L (98-107); Sodium 138 mmol/L (136-145); Total Protein 7.8 g/dL (5.7-8.2)
[2025-06-09 07:01] LABS: Glucose 71 mg/dL (74-106); Potassium 3.1 mmol/L (3.5-5.1)
[2025-06-09 08:00] VITALS: PULSE 48; RESP 16; O2SAT 100
[2025-06-09 09:00] VITALS: BP 111/74; PULSE 48; RESP 16; TEMP 98.3; O2SAT 100
[2025-06-09 13:00] VITALS: BP 90/49; PULSE 64; RESP 16; TEMP 98.4; O2SAT 97
[2025-06-09] MEDS: POTASSIUM EFFERVESENT TAB 25 MEQ PO ONE (13:10)
[2025-06-09 13:36] LABS: Hematocrit 30.9 % (36.0-46.0); Hemoglobin 9.9 g/dL (12.2-16.2)
--- NOTE | 2025-06-09 14:57 | DVHPN2 ---
Subjective Claims that she did not see any blood in her stool this morning Reviewed: Care Plan, H&P, Labs, Medications, Previous Orders, Radiology, Other (Consultation) Changes from previous H/P or p: Changes Objective Vitals Vital Signs Date Time Temp Pulse Resp B/P (MAP) Pulse Ox O2 Delivery O2 Flow Rate FiO2 06/09/25 09:00 98.3 48 16 111/74 (86) 100 98.3 06/09/25 08:00 Room Air* 0 21 Intake/Output Intake and Output 06/09/25 07:00 Intake Total 1420 ml Balance 1420 ml Intake Oral 1120 ml IV Total 50 ml Blood Product 250 ml # Voids 3 # Bowel Movements 2 General Appearance: Alert, Oriented X3, Cooperative, No acute distress HEENT: Atraumatic, Other (Pale) Lungs: Clear to auscultation, Normal air movement Cardiovascular: Regular rate, Normal S1, Normal S2, No murmurs Abdomen: Normal bowel sounds, Soft, No tenderness Neuro: Normal speech, Cranial nerves 3-12 NL Psych/Mental Status: Mental status NL, Mood NL Medications Current Medications Medications Dose Ordered Sig/Cam Route Start Time Stop Time Status Last Admin Dose Admin Sodium Chloride 10 ml Q8HR IV 06/05/25 22:00 06/09/25 08:56 10 ML Acetaminophen 650 mg Q6HP PRN PO 06/05/25 18:30 06/06/25 20:15 650 MG Ondansetron HCl 4 mg Q4HP PRN IV 06/05/25 18:30 Ferrous Sulfate 325 mg DAILY PO 06/06/25 10:00 06/09/25 08:55 325 MG Ceftriaxone Sodium 50 ml @ 100 mls/hr DAILY@09 IV 06/06/25 09:00 06/08/25 08:44 100 MLS/HR Pantoprazole Sodium 40 mg DAILY IV 06/06/25 10:00 06/09/25 08:55 40 MG Prednisone 40 mg DAILY PO 06/07/25 11:15 06/09/25 08:55 40 MG Laboratory Results Laboratory Tests 06/09/25 05:47 06/09/25 13:13 Chemistry Test 06/09/25 05:47 Albumin 4.4 g/dL (3.2-4.8) Calcium Level 9.1 mg/dL (8.7-10.4) Total Protein 7.8 g/dL (5.7-8.2) LFT Test 06/09/25 05:47 Alanine Aminotransferase (ALT) 10 U/L (7-40) Alkaline Phosphatase 57 U/L (46-116) Aspartate Amino Transferase (AST) 14 U/L (13-40) Total Bilirubin 0.5 mg/dL (0.2-1.0) Urinalysis Test 06/05/25 12:23 Urine Color Light-yellow (Yellow) Urine Clarity Turbid (Clear) H Urine pH 6.0 (5.0-9.0) Urine Specific [place] 1.021 (1.001-1.035) Urine Protein Negative (Negative) Urine Ketones Negative (Negative) Urine Blood Negative /uL (Negative) Urine Nitrite Negative (Negative) Urine Bilirubin Negative (Negative) Urine Urobilinogen Normal mg/dL (Negative) Urine Leukocyte Esterase 3+ /uL (Negative) Urine RBC 4 /hpf (0 - 4) Urine Microscopic WBC 14 /HPF (0-5) H Urine Squamous Epithelial Cells Mod /hpf (<5) Urine Bacteria None seen /hpf (None Seen) Urine Mucus Few (None Seen) Urine Creatinine 216.10 mg/dL (30.0-125.0) H Urine Glucose Normal mg/dL (Normal) Microbiology Microbiology Date/Time Source Procedure Growth Status 06/06/25 11:20 Stool Clostridium difficile Toxin Assay - Final Complete 06/05/25 12:23 Voided Urine Urine Culture - Final Complete Labs and/or images reviewed: Labs reviewed by me, Image(s) reviewed by me Assessment/Plan Assessment/Plan A 29 year-old female patient; with ulcerative colitis and marijuana use disorder; who presented with rectal bleeding # Rectal bleeding due to active ulcerative colitis # Severe blood loss anemia due to rectal bleeding secondary to ulcerative colitis; status post 2 units of packed RBCs; repeated hemoglobin for 3 times was stable after last transfusion # Thrombocytosis; most likely reactive in the setting of active bleeding # Abdominal soft tissue nodules; most likely reactive due to active ulcerative colitis as per GI # UTI # Marijuana use disorder # Malnutrition Reviewed lab work and imaging studies Prescribed oral steroids as per GI for discharge Evaluated by GI during admission; to follow up with GI Dr. Snider within 10 days from discharge Received IV ceftriaxone course Urine culture with mixed leonarda Counseled on marijuana use cessation To follow up with Dr. Rogers in discharge clinic next week Late Entry. This medical document was created using an electronic medical record system with computerized dictation system. Although this document has been carefully reviewed, there might still be some phonetic and typographical errors. These areas are purely typographical due to imperfections of the software programs, and do not reflect any compromise in the patient's medical care. Plan discussed with: Patient, Other (Nurse) Date of Service: Jun 09, 2025 Billing Provider: MALINDA ROGERS MD Common Visit Codes: [id number] INP/OBS CARE(MOD) MALINDA ROGERS MD Jun 09, 2025 14:57
[2025-06-09] MEDS ORDERED: PRED20TA2 PO (14:58)
[2025-06-09] MEDS ORDERED: FER325T PO (14:58)
--- NOTE | 2025-06-09 15:01 | DVHDS2 ---
Discharge Summary Date of Admission Jun 05, 2025 at 18:19 Date of Discharge: Jun 09, 2025 Admitting Diagnosis Rectal bleed with severe anemia; sent by her GI specialist Labs/Diagnostic Data: Laboratory Results Test 06/09/25 13:13 06/09/25 05:47 06/05/25 12:31 06/05/25 12:23 Hemoglobin 9.9 g/dL (12.2-16.2) Hematocrit 30.9 % (36.0-46.0) White Blood Count 10.9 10^3/uL (4.4-10.8) Red Blood Count 4.05 10^6/uL (4.0-5.20) Mean Corpuscular Volume 74.2 fL (80.0-100.0) Mean Corpuscular Hemoglobin 23.7 pg (28.0-32.0) Mean Corpuscular Hemoglobin Concent 31.9 g/dL (32.0-36.0) Red Cell Distribution Width 20.9 % (11.8-14.3) Platelet Count 572 10^3/uL (140-450) Mean Platelet Volume 7.7 fL (6.9-10.8) Neutrophils (%) (Auto) 51.3 % (37.0-80.0) Lymphocytes (%) (Auto) 38.7 % (10.0-50.0) Monocytes (%) (Auto) 9.0 % (0.0-12.0) Eosinophils (%) (Auto) 0.7 % (0.0-7.0) Basophils (%) (Auto) 0.3 % (0.0-2.0) Neutrophils # (Auto) 5.6 10 ^3/uL (1.6-8.6) Lymphocytes # (Auto) 4.2 10 ^3/uL (0.4-5.4) Monocytes # (Auto) 1.0 10 ^3/uL (0-1.3) Eosinophils # (Auto) 0.1 10 ^3/uL (0-0.8) Basophils # (Auto) 0 10 ^3/uL (0-0.2) Nucleated Red Blood Cells 0.1 % Sodium Level 138 mmol/L (136-145) Potassium Level 3.1 mmol/L (3.5-5.1) Chloride Level 101 mmol/L (98-107) Carbon Dioxide Level 28 mmol/L (20-31) Anion Gap 9 (5-15) Blood Urea Nitrogen 12 mg/dL (9-23) Creatinine 0.68 mg/dL (0.550-1.02) Glomerular Filtration Rate Calc 122 mL/min (>90) BUN/Creatinine Ratio 17.6 (10.0-20.0) Serum Glucose 71 mg/dL (74-106) Calcium Level 9.1 mg/dL (8.7-10.4) Total Bilirubin 0.5 mg/dL (0.2-1.0) Aspartate Amino Transferase (AST) 14 U/L (13-40) Alanine Aminotransferase (ALT) 10 U/L (7-40) Alkaline Phosphatase 57 U/L (46-116) Total Protein 7.8 g/dL (5.7-8.2) Albumin 4.4 g/dL (3.2-4.8) Prothrombin Time 10.7 sec (9.3-11.8) Prothrombin Time INR 1.01 (0.9-1.15) Activated Partial Thromboplast Time 25.9 SEC (24.5-34.5) Hepatitis B Surface Antigen Negative (Negative) Hepatitis C Antibody Negative (Negative) Urine Color Light-yellow (Yellow) Urine Clarity Turbid (Clear) Urine pH 6.0 (5.0-9.0) Urine Specific [place] 1.021 (1.001-1.035) Urine Protein Negative (Negative) Urine Ketones Negative (Negative) Urine Blood Negative /uL (Negative) Urine Nitrite Negative (Negative) Urine Bilirubin Negative (Negative) Urine Urobilinogen Normal mg/dL (Negative) Urine Leukocyte Esterase 3+ /uL (Negative) Urine RBC 4 /hpf (0 - 4) Urine Microscopic WBC 14 /HPF (0-5) Urine Squamous Epithelial Cells Mod /hpf (<5) Urine Bacteria None seen /hpf (None Seen) Urine Mucus Few (None Seen) Urine Creatinine 216.10 mg/dL (30.0-125.0) Urine Glucose Normal mg/dL (Normal) Other Laboratory Tests 06/09/25 13:13 06/09/25 05:47 Brief Hx & Hospital Course: A 29 year-old female patient; with ulcerative colitis and marijuana use disorder; who presented with rectal bleed causing severe anemia; sent by her GI specialist. # Rectal bleeding due to active ulcerative colitis with # Severe blood loss anemia due to rectal bleeding secondary to ulcerative colitis; status post 2 units of packed RBCs; repeated hemoglobin for 3 times was stable after last transfusion # Thrombocytosis; most likely reactive in the setting of active bleeding # Abdominal soft tissue nodules; most likely reactive due to active ulcerative colitis as per GI # UTI # Marijuana use disorder # Malnutrition Reviewed lab work and imaging studies Prescribed oral steroids as per GI for discharge Evaluated by GI during admission; to follow up with GI Dr. Snider within 10 days from discharge Received IV ceftriaxone course Urine culture with mixed leonarda Counseled on marijuana use cessation To follow up with Dr. Rogers in discharge clinic next week Late Entry. This medical document was created using an electronic medical record system with computerized dictation system. Although this document has been carefully reviewed, there might still be some phonetic and typographical errors. These areas are purely typographical due to imperfections of the software programs, and do not reflect any compromise in the patient's medical care. Consults/Reason for consult GI for rectal bleed Condition at Discharge: Stable Final Diagnosis/Problems List # Rectal bleeding due to active ulcerative colitis with # Severe blood loss anemia due to rectal bleeding secondary to ulcerative colitis; status post 2 unit of packed RBC Discharge Disposition: Home Discharge Instruct/Medications Diet: Regular Activity: No Restrictions, As Tolerated Follow Up/Referral: Dr. Rogers/Dr. Bob at 8:00 a.m. Tuesday June 17, 2025 at [facility]Dr. Snider within 1 to 2 weeks Medications: Prescribed prednisone 20 mg to take two tablets daily for 10 days; it is preferable to see her GI doctor Dr. Snider before finishing the prednisone Scheduled Ferrous Sulfate (Ferrous Sulfate), 325 MG PO DAILY Prednisone (Prednisone), 40 MG PO DAILY Discharge Statement: "Patient was advised to return to the ER or call 911 if any headaches, dizziness, shortness of breath, chest pain, abdominal pain, bleeding, fevers, or worsening of medical condition. Patient was counseled about treatment plan, medications, possible side effects, patientverbalized understanding. All questions were answered to the best of my ability. This discharge took greater then 30 minutes in planning, reviewing documentation, counseling the patient, and discussing with other team members." ASSESSMENT ASSESSMENT Assessment # Rectal bleeding due to active ulcerative colitis with # Severe blood loss anemia due to rectal bleeding secondary to ulcerative colitis; status post 2 unit of packed RBC Date of Service: Jun 09, 2025 Billing Provider: MALINDA ROGERS MD Common Visit Codes: 08080-IXT/OBS DISCH DAY >30min MALINDA ROGERS MD Jun 09, 2025 15:01
== END 2025-06-09 17:15 | disposition home or self-care (01) | DRG 245 ==
LOC: ER 12:05 → OVERFLOW 18:19 → EAST 06-06 23:48
PROVIDERS: ADMIT Internal Medicine; ATTEND Internal Medicine
PROC: 30233N1 Transfusion of Nonautologous Red Blood Cells into Peripheral Vein, Percutaneous Approach (ICD-10-PCS; principal; 2025-06-05)
DX: K51.911 Ulcerative colitis, unspecified with rectal bleeding (principal); E44.1 Mild protein-calorie malnutrition; D50.0 Iron deficiency anemia secondary to blood loss (chronic); D75.839 Thrombocytosis, unspecified; F12.10 Cannabis abuse, uncomplicated; E03.9 Hypothyroidism, unspecified; N39.0 Urinary tract infection, site not specified; Z79.899 Other long term (current) drug therapy; Z68.1 Body mass index [BMI] 19.9 or less, adult
CPT/HCPCS: 36415; 36430; 74176; 80048; 80053; 81001; 82570; 85014; 85018; 85025; 85610; 85730; 86803; 86850; 86900; 86901; 86920; 87086; 87340; 87493; 96365; G0378; J2470

== ENCOUNTER 2025-07-11 08:12 | Outpatient (CLI) | payer MEDICAID ==
[~2025-07-11 08:12] MED LIST: FER325T PO; PRED20TA2 PO
[2025-07-11 08:29] LABS: Mean Corpuscular Hemoglobin 24.1 pg (28.0-32.0)
[2025-07-11 08:31] LABS: Hematocrit 32.7 % (36.0-46.0); Hemoglobin 10.2 g/dL (12.2-16.2); Mean Corpuscular Volume 77.5 fL (80.0-100.0); Nucleated Red Blood Cells % 0.1 %
[2025-07-11 08:49] LABS: Urine Amorphous Crystal FEW /hpf (None Seen); Urine Protein, UAD Negative (Negative)
[2025-07-11 09:03] LABS: Alanine Aminotransferase 24 U/L (7-40); Albumin 4.1 g/dL (3.2-4.8); Alkaline Phosphatase 48 U/L (46-116); Anion Gap 7 (5-15); BUN/Creatinine Ratio 17.4 (10.0-20.0); Blood Urea Nitrogen 12 mg/dL (9-23); Calcium 9.1 mg/dL (8.7-10.4); Carbon Dioxide 28 mmol/L (20-31); Chloride 104 mmol/L (98-107); Cholesterol 169 mg/dL (< 200); Glucose 83 mg/dL (74-106); Potassium 3.7 mmol/L (3.5-5.1); Sodium 139 mmol/L (136-145); Total Protein 7.3 g/dL (5.7-8.2); Triglycerides 75 mg/dL (< 150)
[2025-07-11 09:04] LABS: Bilirubin, Total 0.4 mg/dL (0.2-1.0); HDL Cholesterol 78 mg/dL (40-59)
[2025-07-11 09:20] LABS: Anisocytosis Moderate; Ovalocytes FEW
[2025-07-11 13:13] LABS: Iron 16.0 ug/dL (50-170)
[2025-07-11 13:15] LABS: Total Iron Binding Capacity 341.0 ug/dL (250-425)
[2025-07-11 14:18] LABS: Free T4 (Free Thyroxine) 1.29 ng/dL (0.89-1.76)
[2025-07-11 14:19] LABS: Ferritin 4.7 ng/mL (10-291)
== END 2025-07-11 17:00 | disposition home or self-care (01) ==
LOC: LAB 08:12
PROVIDERS: ATTEND Internal Medicine Cardiovascular Disease
DX: D64.9 Anemia, unspecified (principal); E03.9 Hypothyroidism, unspecified; Z00.01 Encounter for general adult medical examination with abnormal findings; K51.911 Ulcerative colitis, unspecified with rectal bleeding; F12.10 Cannabis abuse, uncomplicated; Z79.899 Other long term (current) drug therapy
CPT/HCPCS: 36415; 80053; 80061; 81001; 82306; 82607; 82728; 83036; 83540; 83550; 84439; 84443; 84480; 85025